=== PATIENT | female | born 1990 | race Caucasian/White ===

== ENCOUNTER 2018-03-13 23:08 | Emergency (ER) | payer OTHER, SELFPAY ==
[2018-03-13] MEDS ORDERED: Lidocaine 1% PF 5 ML VIAL ONE (23:12)
--- NOTE | 2018-03-13 23:33 | RAD ---
RIGHT FOOT: 03/13/18 Three views. HISTORY: Injury to right fifth toe. FINDINGS: Tarsals appear unremarkable. Metatarsals are intact and unremarkable. There appears to be partial fusion of the proximal and distal phalanx of the fifth toe. There is irre gularity at this partially fused joint. However, no evidence of acute fracture identified. IMPRESSION: No acute fracture identified. POS: [facility]
== END 2018-03-13 23:55 | disposition home or self-care (01) ==
LOC: ERS 23:08
DX: S90.121A Contusion of right lesser toe(s) without damage to nail, initial encounter (principal); F41.9 Anxiety disorder, unspecified; Z79.899 Other long term (current) drug therapy; W22.03XA Walked into furniture, initial encounter
CPT/HCPCS: J2001